=== PATIENT | male | born 1965 ===

== ENCOUNTER 2016-10-30 19:51 | Emergency (ER) | payer BC ==
[2016-10-30 20:07] VITALS: BP 115/77
--- NOTE | 2016-10-30 20:26 | UC ---
Shortness of Breath HPI - History of Current Complaint Chief Complaint: UCCardiac Stated Complaint: SHORTNESS OF BREATH Time Seen by Provider: 10/30/16 20:19 Hx Obtained From: Patient Onset/Duration: Gradual Onset, Lasting Days - 3, Worse Since Dyspnea At: Exertion - walking around doing chores. Aggrevating Factors: Movement - feels like respiratory capacity is diminshed. Associated Signs & Symptoms: Positive: Cough (Productive) - with exertion, bubbly clear stuff, after walking around., Diaphoresis. Negative: Chest Pain w/ Cough, Chest Pain Unrelated to Cough, Chills, Nasal Congestion, Calf Pain/ Swelling Related History: Recent Trauma - Had CABG 12 weeks ago x 3 at [facility]. - Risk Factors Pulmonary Embolism: Recent Surgery Cardiac: CAD Pseudomonas: Negative Tuberculosis: Negative - Allergy/Home Medications Allergies/Adverse Reactions: Allergies Allergy/AdvReac Type Severity Reaction Status Date / Time No Known Allergies Allergy Verified 10/30/16 20:07 Home Medications: Home Medications Atorvastatin* [Lipitor 20 MG*] 20 mg PO 1700 10/30/16 [History Confirmed ] Carvedilol TAB* [Coreg TAB*] 25 mg PO BID 10/30/16 [History Confirmed 10/30/16] PMH/Surg Hx/FS Hx/Imm Hx Cardiovascular History Of: Reports: Cardiac Disorders - CAD W/ CABG X 3 [facility] - Surgical History Surgical History: Yes Surgery Procedure, Year, and Place: 07/2016, CABG X 3 [facility] - Family History Known Family History: Positive: Cardiac Disease Negative: Hypertension, Diabetes - Social History Occupation: Employed Full-time Lives: With Family Alcohol Use: None Substance Use Type: None Smoking Status (MU): Former Smoker Amount Used/How Often: 2 PPD Length of Time of Smoking/Using Tobacco: AGE 11 TO 50 Have You Smoked in the Last Year: Yes Review of Systems Respiratory: Shortness Of Breath, Cough - he forces himself to cough. All Other Systems Reviewed And Are Negative: Yes Physical Exam Triage Information Reviewed: Yes Appearance: Well-Appearing, No Pain Distress, Well-Nourished Vital Signs: Initial Vital Signs Temp 97.5 F 10/30/16 19:56 Pulse 85 10/30/16 19:56 Resp 16 10/30/16 19:56 BP 115/77 10/30/16 19:56 Pulse Ox 97 10/30/16 19:56 Vital Signs Reviewed: Yes Eyes: Positive: Conjunctiva Clear ENT: Positive: Pharynx normal, Nasal congestion - allergic changes., TMs normal Neck exam: Normal Respiratory: Positive: Wheezing - expiratory wheeze with cough Cardiovascular Exam: Normal Musculoskeletal Exam: Normal Musculoskeletal: Positive: No Edema, Other: - negative homans bilaterally Neurological Exam: Normal Psychological Exam: Normal Skin Exam: Normal Shortness of Breath Dx - Differential Dx/Diagnosis Differential Diagnosis/HQI/PQRI: Asthma, Chest Wall Pain, COPD Exacerbation, Pulmonary Embolism, Unstable Angina Provider Diagnoses: Allergic rhinitis. Mild persistent asthma. Discharge - Discharge Plan Condition: Stable Disposition: HOME Prescriptions: Montelukast Sodium TAB* [Singulair 10 MG TAB*] 10 mg PO BEDTIME #30 tab Patient Education Materials: Exercise Induced Bronchoconstriction (ED), Montelukast (By mouth)
--- NOTE | 2016-10-30 20:57 | RAD ---
INDICATION: Shortness of breath 12 week status post coronary artery bypass surgery. COMPARISON: There are no prior studies available for comparison. TECHNIQUE: Dual-energy PA and lateral views of the chest were obtained. FINDINGS: The patient is status post sternotomy and coronary artery bypass surgery. The heart is within normal limits in size. Mediastinal and hilar contours appear normal. There is elevation of the left hemidiaphragm and a small infiltrate at the left lung base suggestive of atelectasis. The right lung appears clear. IMPRESSION: STATUS POST CORONARY ARTERY BYPASS SURGERY, ELEVATED LEFT HEMIDIAPHRAGM. SMALL LEFT BASILAR INFILTRATE SUGGESTIVE OF ATELECTASIS.
== END 2016-10-30 21:00 | disposition home or self-care (01) ==
LOC: UCCORT 19:51
DX: J30.9 Allergic rhinitis, unspecified (principal); R06.02 Shortness of breath; I25.10 Atherosclerotic heart disease of native coronary artery without angina pectoris; Z95.1 Presence of aortocoronary bypass graft; Z87.891 Personal history of nicotine dependence
CPT/HCPCS: 71020; 93005; 99212; G0463